=== PATIENT | male | born 1940 | race Caucasian/White ===

== ENCOUNTER 2024-04-18 10:10 | Emergency (ER) | payer OTHER, SELFPAY ==
[2024-04-18 10:18] VITALS: BP 111/84; PULSE 101; RESP 16; TEMP 36.3; O2SAT 97
--- NOTE | 2024-04-18 10:44 | ED.GENADUL_ITS ---
Discharge Plan Disposition Patient Disposition: Home Condition: Stable Discharge Details Clinical Impression: COVID Primary Care Provider: [facility] Provider: Pineda Pardo Home Meds and New Rx's Prescriptions: Continued CertaVite Senior 0.4 mg-300 mcg- 250 mcg tablet 1 tab PO DAILY calcium citrate-vitamin D3 [Calcium Citrate + D] 315 mg-5 mcg (200 unit) tablet 1 tab PO DAILY ropinirole 1 mg tablet 1 mg PO BID melatonin 10 mg capsule 10 mg PO QHS spironolactone 25 mg tablet 25 mg PO DAILY pioglitazone 15 mg tablet 15 mg PO DAILY calcium carbonate [Antacid (calcium carbonate)] 200 mg calcium (500 mg) tablet,chewable 750 mg PO ONCE PRN diltiazem HCl 180 mg capsule,ext.rel 24h degradable 180 mg PO DAILY metoprolol succinate 50 mg tablet extended release 24 hr 50 mg PO DAILY ezetimibe-simvastatin 10-20 mg tablet 1 tab PO DAILY bumetanide 1 mg tablet 1 mg PO DAILY Eliquis 5 mg tablet 5 mg PO BID calcium carbonate [Super Calcium] 600 mg calcium (1,500 mg) tablet 600 mg PO DAILY magnesium 250 mg tablet 250 mg PO DAILY tramadol 50 mg tablet 50 mg PO TID PRN Patient Comments: TAKE 1 TABLET BY MOUTH THREE TIMES DAILY NEEDED FOR PAIN FOR 7 DAYS . DO NOT EXCEED 3 PER 24 HOURS acetaminophen [8 Hour Pain Reliever] 650 mg tablet extended release 650 mg PO Q8H PRN sennosides [Palma-leander] 8.6 mg tablet 8.6 mg PO ONCE PRN Discharge Instructions Instructions: COVID-19 ED Additional Instructions: Please drink plenty of fluid to stay hydrated and allow for plenty of rest. Please maintain home isolation for the next 5 days. Wear a high-quality mask if you must be around others at home and in public. Do not go places where you are unable to wear a mask. For travel guidance, see CDC's Travel webpage. Do not travel. Stay home and separate from others as much as possible. Use a separate bathroom, if possible. Take steps to improve ventilation at home, if possible. Don't share personal household items, like cups, towels, and utensils. Monitor your symptoms. If you have an emergency warning sign (like trouble breathing), seek emergency medical care immediately. You may end isolation after day 5 if your symptoms are improving and you are fever free for 24 hours without the use of fever reducing medication. If your symptoms are not improving at day 5 continue to isolate until symptoms are improving and you are fever free for 24 hours without the use of fever reducing medication. Please contact your primary care physician to arrange follow-up. Return to the ER immediately for any worsening or new concerning symptoms. Discharge Data Discharge Date/Time-TO BE ENTERED AT DEPARTURE: 04/18/24 12:01 HPI General Mode of arrival: ambulatory . Date/Time Provider Initiated Documentation: 04/18/24 10:41 . Limitations to Documentation: no limitations . Information obtained by: patient . HPI Narrative: 84-year-old male here with influenza-like illness over the past 3 days. Patient notes body aches, feeling feverish with associated sweats and chills. Generally not feeling well. He has had some cough. No associated shortness of breath. No chest pain. Related Data Home Medications ?Medication ?Instructions ?Recorded ?Confirmed acetaminophen 650 mg 650 mg PO Q8H PRN 04/18/24 04/18/24 tablet,extended release (8 Hour Pain Reliever) apixaban 5 mg tablet (Eliquis) 5 mg PO BID 04/18/24 04/18/24 bumetanide 1 mg tablet 1 mg PO DAILY 04/18/24 04/18/24 calcium 315 mg (as 1 tab PO DAILY 04/18/24 04/18/24 citrate)-vitamin D3 5 mcg (200 unit) tablet (Calcium Citrate + D) calcium carbonate (Antacid 750 mg PO ONCE PRN 04/18/24 04/18/24 (calcium carbonate)) calcium carbonate (Super Calcium) 600 mg PO DAILY 04/18/24 04/18/24 diltiazem HCl 180 mg 180 mg PO DAILY 04/18/24 04/18/24 capsule,extended release 24 hr, controlled ezetimibe 10 mg-simvastatin 20 mg 1 tab PO DAILY 04/18/24 04/18/24 tablet magnesium 250 mg tablet 250 mg PO DAILY 04/18/24 04/18/24 melatonin 10 mg capsule 10 mg PO QHS 04/18/24 04/18/24 metoprolol succinate 50 mg 50 mg PO DAILY 04/18/24 04/18/24 tablet,extended release 24 hr [id number]-[id number] acid 0.4 1 tab PO DAILY 04/18/24 04/18/24 mg-lycopene 300 mcg-lutein 250 mcg tablet (CertaVite Senior) pioglitazone 15 mg tablet 15 mg PO DAILY 04/18/24 04/18/24 ropinirole 1 mg tablet 1 mg PO BID 04/18/24 04/18/24 sennosides 8.6 mg tablet (Palma-leander) 8.6 mg PO ONCE PRN 04/18/24 04/18/24 spironolactone 25 mg tablet 25 mg PO DAILY 04/18/24 04/18/24 tramadol 50 mg tablet 50 mg PO TID PRN 04/18/24 04/18/24 Allergies Allergy/AdvReac Type Severity Reaction Status Date / Time Sulfa (Sulfonamide Allergy Unknown unknown Verified 04/18/24 10:23 Antibiotics) General Stated Complaint: GenMedical JANICE: 3 Review of Systems All systems reviewed & are unremarkable except as noted in HPI and below Constitutional Constitutional: Reports as per HPI, Reports body ache(s) and Reports fever(s) Respiratory Respiratory: Reports as per HPI Exam Const General: no acute distress HENMT Mouth: moist mucous membranes Throat: posterior oropharynx normal Eyes Conjunctivae: normal conjunctivae Sclera: normal sclerae Resp Auscultation: clear to auscultation bilaterally, no rales, no rhonchi and no wheezes Cardio Rate: regular rate and not tachycardic Rhythm: regular rhythm GI Palpation: soft, not firm, no guarding, no masses, not rigid and nontender Skin General skin exam: no rashes or lesions noted Neuro General: patient alert, patient awake and tone normal Extrem General: no edema Psych Appearance: grossly normal Mental Status: mental status grossly normal Course Vital Signs Vital signs: Vital Signs Temperature 36.3 C L 04/18/24 10:18 Pulse 101 H 04/18/24 10:18 Respiratory Rate 16 04/18/24 10:18 Blood Pressure 111/84 04/18/24 10:18 Pulse Oximetry 97 04/18/24 10:18 Temperature 36.3 C L 04/18/24 10:18 Temperature Source Temporal Artery Scan 04/18/24 10:18 Pulse 101 H 04/18/24 10:18 Respiratory Rate 16 04/18/24 10:18 Blood Pressure 111/84 04/18/24 10:18 Blood Pressure Position Sitting 04/18/24 10:18 Pulse Oximetry 97 04/18/24 10:18 Pain Level 8 04/18/24 10:18 Medical Decision Making 84-year-old male here with influenza-like illness for the past 3 days. On my assessment he is not tachycardic. Patient mildly tachycardic on arrival. Normotensive. Saturating well in no respiratory distress. Concern for flu versus COVID. COVID POC test resulted positive. Influenza neg. I called and spoke with pharmacy about antiviral and they recommend molnupiravir given significant interactions with his medications. Usual and customary discharge instructions were reviewed with the patient. Lab Data Lab results reviewed: Yes I reviewed the patient's lab results. Labs: Laboratory Tests Range/Units 04/18/24 10:22 COVID-19 Source Cancelled SARS-CoV-2 (PCR) Cancelled Influenza Type A (PCR) Cancelled Influenza Type B (PCR) Cancelled RSV (PCR) Cancelled Quality:SDOH Health Related Social Needs: No Data to Display PFSH All Active Problems COVID (Acute) Social History Smoking risk assessment performed?: No
[2024-04-18 10:47] VITALS: BP 111/84; PULSE 101; RESP 16; TEMP 36.3; O2SAT 97
[2024-04-18 11:59] VITALS: BP 111/84; PULSE 101; RESP 16; TEMP 36.3; O2SAT 97
== END 2024-04-18 12:01 | disposition home or self-care (01) ==
PROVIDERS: Emergency Provider Student in an Organized Health Care Education/Training Program
DX: U07.1 COVID-19 (principal)
CPT/HCPCS: 87426; 87637; 99282; 99283